=== PATIENT | male | born 1985 | race Two or more races ===

== ENCOUNTER 2018-11-19 20:35 | Emergency (ER) | payer OTHER ==
[2018-11-19 20:53] VITALS: BP 152/93
--- NOTE | 2018-11-19 21:43 | XRAY Report ---
Reason: cough one week, fever Procedure Date: 11/19/2018 Accession Number: [id number] / [id number] Procedure: XR - Chest 2 View X-Ray CPT Code: 95591 FULL RESULT: EXAM: CHEST RADIOGRAPHY EXAM DATE: 11/19/2018 09:08 PM. CLINICAL HISTORY: Cough one week, fever. COMPARISON: None. TECHNIQUE: 2 views. FINDINGS: Lungs/Pleura: No focal opacities evident. No pleural effusion. No pneumothorax. Normal volumes. Mediastinum: Heart and mediastinal contours are unremarkable. Other: None. IMPRESSION: Negative chest RADIA
[2018-11-19] MEDS ORDERED: DEXAMETHASONE 10 MG/ML VIAL PO STA (23:38)
[2018-11-19] MEDS ORDERED: diphenhydrAMINE 25 MG CAPSULE PO STA (23:38)
[2018-11-19] MEDS ORDERED: BENZONATATE 100 MG CAPSULE PO STA (23:38)
--- NOTE | 2018-11-19 23:40 | ED Physician Documentation ---
PD HPI URI - Stated complaint Stated Complaint: FLU SX - Chief complaint Chief Complaint: Resp - Additional information Additional information: 33-year-old male presents emergency department with fever, body aches, chills, nasal congestion, cough last week. Mild improvement with [id number] medications. No other associated symptoms. No reports of difficulty breathing. No chest pain or abdominal pain. No swelling. Symptoms are described as moderate Review of Systems Constitutional: reports: Fever, Chills, Myalgias, Fatigue Eyes: denies: Discharge Ears: denies: Ear pain Nose: reports: Rhinorrhea / runny nose, Congestion Throat: denies: Sore throat Cardiac: denies: Chest pain / pressure Respiratory: reports: Cough GI: reports: Abdominal Pain : denies: Dysuria Skin: denies: Rash Musculoskeletal: denies: Neck pain Neurologic: reports: Generalized weakness PD PAST MEDICAL HISTORY - Past Surgical History Past Surgical History: Yes Ortho: Other - Present Medications Home Medications: Ambulatory Orders Medication Instructions Recorded Confirmed Hydrocodone/Acetaminophen 1 - 2 tab PO Q4-6H PRN #15 tablet 03/01/14 [Hydrocodon-Acetaminophen 5-325] Ibuprofen [Motrin] 800 mg PO Q8H PRN #30 tablet 03/01/14 Amoxicillin 500 mg PO TID 7 Days capsule 03/30/15 Lidocaine HCl [Lidocaine HCl 15 ml MM TID PRN #120 ml 03/30/15 Viscous] Albuterol Sulf [Ventolin Hfa 1 - 2 puffs INH Q4HR PRN #1 inhaler 11/19/18 Inhaler] Benzonatate [Tessalon Perle] 100 mg PO TID PRN #30 capsule 11/19/18 - Allergies Allergies/Adverse Reactions: Allergies Allergy/AdvReac Type Severity Reaction Status Date / Time No Known Drug Allergies Allergy Verified 03/01/14 22:27 - Social History Does the pt smoke?: No Smoking Status: Never smoker Does the pt drink ETOH?: Yes Does the pt have substance abuse?: No - Immunizations Immunizations are current?: Yes - POLST Patient has POLST: Yes PD ED PE NORMAL - General General: Alert and oriented X 3, No acute distress - HEENT HEENT: Atraumatic, PERRL, EOMI, Ears normal - Cardiac Cardiac: RRR, Strong equal pulses - Respiratory Respiratory: No respiratory distress, Clear bilaterally - Derm Derm: Normal color - Extremities Extremities: No deformity - Neuro Neuro: Alert and oriented X 3, Normal speech - Psych Psych: Normal mood Results - Vitals Vitals: Vital Signs - 24 hr 11/19/18 20:47 Temperature 35.5 C L Heart Rate 101 H Respiratory 18 Rate Blood Pressure 152/93 H O2 Saturation 97 Oxygen O2 Source Room air - Labs Labs: Laboratory Tests 11/19/18 20:54 Influenza A (Rapid) Negative Influenza B (Rapid) Negative - Rads (name of study) CXR Radiology: Final report received, See rad report PD MEDICAL DECISION MAKING - ED course ED course: Well-appearing, nontoxic well-hydrated male who appears to be in no significant distress. The patient has no findings to suggest sepsis, the patient's symptoms represent a viral etiology and appears appropriate for discharge and ongoing outpatient management. I discussed warning signs and recommended returning for any worsening or any concerns Departure - Departure Disposition: 01 Home, Self Care Clinical Impression: Viral bronchitis Condition: Good Instructions: Bronchitis Acute Dc Follow-Up: [facility] Krishnan [Provider Group] - Within 1 week Prescriptions: Albuterol Sulf [Ventolin Hfa Inhaler] 1 - 2 puffs INH Q4HR PRN #1 inhaler PRN Reason: Shortness Of Air/Wheezing Benzonatate [Tessalon Perle] 100 mg PO TID PRN #30 capsule PRN Reason: Cough Comments: Please return to the ED for worsening symptoms or any concerns
[2018-11-19] MEDS ORDERED: CHERRY SYRUP 10 ML UDC PO ONE (23:49)
== END 2018-11-19 23:51 | disposition home or self-care (01) ==
LOC: ED 20:35
DX: J20.8 Acute bronchitis due to other specified organisms (principal); B97.89 Other viral agents as the cause of diseases classified elsewhere
CPT/HCPCS: 71046; 87275; 87276; 99283; A9270

== ENCOUNTER 2018-12-13 07:54 | Emergency (ER) | payer OTHER ==
[2018-12-13] MEDS ORDERED: DEXAMETHASONE 10 MG/ML VIAL PO STA (08:10)
--- NOTE | 2018-12-13 08:13 | ED Physician Documentation ---
History of Present Illness - Stated complaint Stated Complaint: SORE THROAT - Chief complaint Chief Complaint: Heent - History obtained from History obtained from: Patient - History of Present Illness Timing: How many days ago (3) Pain level max: 5 Pain level now: 3 - Additonal information Additional information: 33-year-old male presents to the emergency department stating that the right side of his throat has been hurting for the past 2-3 days. Concerned that he may have strep. No fevers. Mild cough. No vomiting. Does have some rhinorrhea and worse with swallowing, better with Motrin Review of Systems Constitutional: denies: Fever GI: denies: Vomiting, Diarrhea PD PAST MEDICAL HISTORY - Past Medical History Past Medical History: Yes Cardiovascular: Hypertension - Past Surgical History Past Surgical History: Yes Ortho: Other - Present Medications Home Medications: Ambulatory Orders Medication Instructions Recorded Confirmed Lisinopril 20 mg PO DAILY 11/19/18 12/13/18 - Allergies Allergies/Adverse Reactions: Allergies Allergy/AdvReac Type Severity Reaction Status Date / Time No Known Drug Allergies Allergy Verified 12/13/18 08:07 - Social History Does the pt smoke?: No Smoking Status: Never smoker Does the pt drink ETOH?: Yes Does the pt have substance abuse?: No - Immunizations Immunizations are current?: Yes - POLST Patient has POLST: Yes PD ED PE NORMAL - Vitals Vital signs reviewed: Yes - General General: Alert and oriented X 3, No acute distress - HEENT HEENT: Ears normal, Moist mucous membranes, Other (Mild posterior pharyngeal erythema without tonsillar exudates. Uvula midline. Normal phonation. No trismus) - Neck Neck: Supple, no meningeal sign, No adenopathy - Cardiac Cardiac: RRR, Strong equal pulses - Respiratory Respiratory: No respiratory distress, Clear bilaterally - Derm Derm: Warm and dry - Neuro Neuro: Alert and oriented X 3 - Psych Psych: Normal mood, Normal affect Results - Vitals Vitals: Vital Signs - 24 hr 12/13/18 07:58 Temperature 36.4 C L Heart Rate 90 Respiratory 20 Rate Blood Pressure 170/125 H O2 Saturation 96 Oxygen O2 Source Room air - Labs Labs: Laboratory Tests 12/13/18 08:03 Group A Strep Rapid Negative PD MEDICAL DECISION MAKING - ED course Complexity details: reviewed results, considered differential, d/w patient ED course: Rapid strep is negative. Appears to be a viral pharyngitis. Will continue supportive care and follow-up with his doctor. Patient counseled regarding signs and symptoms for which I believe and urgent re-evaluation would be necessary. Patient with good understanding of and agreement to plan and is comfortable going home at this time This document was made in part using voice recognition software. While efforts are made to proofread this document, sound alike and grammatical errors may occur. Departure - Departure Disposition: 01 Home, Self Care Clinical Impression: Pharyngitis Condition: Good Instructions: ED Pharyngitis Viral Comments: Your strep test is negative today. We will call you if the backup culture is positive. Drink plenty of fluids and rest. Return if you worsen
[2018-12-13] MEDS ORDERED: CHERRY SYRUP 10 ML UDC PO ONE (08:42)
[2018-12-13 09:29] VITALS: BP 176/115
== END 2018-12-13 08:43 | disposition home or self-care (01) ==
LOC: ED 07:54
DX: J02.9 Acute pharyngitis, unspecified (principal); I10 Essential (primary) hypertension
CPT/HCPCS: 87070; 87430; 99282; 99283; A9270